=== PATIENT | female | born 1960 | race Caucasian/White ===

== ENCOUNTER → 2024-04-08 13:14 | Outpatient (REF) | payer OTHER, SELFPAY | LOC: HWWDC 13:14 | PROVIDERS: ATTENDING PHYSICIAN Nurse Practitioner Adult Health; FAMILY PHYSICIAN Nurse Practitioner Adult Health | DX: Z12.31 Encounter for screening mammogram for malignant neoplasm of breast (principal) | CPT/HCPCS: 77063; 77067 ==

== ENCOUNTER → 2024-05-10 20:30 | Outpatient (REF) | payer OTHER, SELFPAY | LOC: MRI 20:30 | PROVIDERS: ATTENDING PHYSICIAN Student in an Organized Health Care Education/Training Program; FAMILY PHYSICIAN Nurse Practitioner Adult Health | DX: M75.22 Bicipital tendinitis, left shoulder (principal) | CPT/HCPCS: 73221 ==

== ENCOUNTER → 2024-10-09 08:59 | Outpatient (REF) | payer OTHER, SELFPAY | LOC: HWRAD 08:59 | PROVIDERS: ATTENDING PHYSICIAN Nurse Practitioner Adult Health; REFERRING PHYSICIAN Physician Assistant | DX: M54.50 Low back pain, unspecified (principal); M85.89 Other specified disorders of bone density and structure, multiple sites; S22.080D Wedge compression fracture of T11-T12 vertebra, subsequent encounter for fracture with routine healing | CPT/HCPCS: 77080 ==

== ENCOUNTER → 2024-12-16 07:00 | Outpatient (REF) | payer OTHER, SELFPAY | LOC: MRI 3T 07:00 | PROVIDERS: ATTENDING PHYSICIAN Physician Assistant; FAMILY PHYSICIAN Nurse Practitioner Adult Health | DX: M54.16 Radiculopathy, lumbar region (principal) | CPT/HCPCS: 72148 ==

== ENCOUNTER → 2024-12-27 11:10 | Outpatient (REF) | payer OTHER, SELFPAY | LOC: RADI 11:10 | PROVIDERS: ATTENDING PHYSICIAN Physician Assistant; FAMILY PHYSICIAN Nurse Practitioner Adult Health | DX: S22.080A Wedge compression fracture of T11-T12 vertebra, initial encounter for closed fracture (principal); X58.XXXA Exposure to other specified factors, initial encounter ==

== ENCOUNTER → 2025-01-23 07:13 | Outpatient (REF) | payer OTHER, SELFPAY ==
[2025-01-23] VITALS (13 sets, daily range): BP systolic 73–129; BP diastolic 50–87
[2025-01-23 07:35] LABS: Hematocrit 39.8 % (37.0-47.0); Hemoglobin 13.3 g/dL (12.0-16.0); Mean Corp Hgb Conc. 33.4 g/dL (33.0-37.0); Mean Corpuscular Volume 86.3 fL (81.0-99.0); Platelet Count 275 10^3/uL (130-400); Red Cell Dist. Width 14.2 % (11.5-14.5)
[2025-01-23 07:39] LABS: INR 0.95; PT 13.2 Sec (11.4-14.6)
[2025-01-23] MEDS: ANCEF 10 IV (08:56)
== END ==
LOC: RADI 07:13
PROVIDERS: ATTENDING PHYSICIAN Radiology Vascular & Interventional Radiology; FAMILY PHYSICIAN Nurse Practitioner Adult Health; OTHER PHYSICIAN Physician Assistant; REFERRING PHYSICIAN Physician Assistant
DX: M48.54XA Collapsed vertebra, not elsewhere classified, thoracic region, initial encounter for fracture (principal); M85.89 Other specified disorders of bone density and structure, multiple sites
CPT/HCPCS: 22513; 36415; 85027; 85610

== ENCOUNTER → 2025-04-08 10:48 | Outpatient (REF) | payer OTHER, SELFPAY | LOC: HWRAD 10:48 | PROVIDERS: ATTENDING PHYSICIAN Nurse Practitioner Adult Health | DX: Z87.891 Personal history of nicotine dependence (principal) | CPT/HCPCS: 71271 ==

== ENCOUNTER → 2025-04-16 15:11 | Outpatient (REF) | payer OTHER, SELFPAY | LOC: RAD 15:11 | PROVIDERS: ATTENDING PHYSICIAN Nurse Practitioner Adult Health | DX: Z87.891 Personal history of nicotine dependence (principal); I70.0 Atherosclerosis of aorta | CPT/HCPCS: 76770 ==